=== PATIENT | female | born 1950 | race Caucasian/White ===

== ENCOUNTER 2021-01-28 15:52 | Emergency (ER) | payer BC, OTHER ==
[2021-01-28 16:11] VITALS: BP 128/80; PULSE 77; TEMP 97.9; BMI 26.6
== END 2021-01-28 19:25 | disposition home or self-care (01) ==
LOC: JER 15:52
DX: R07.9 Chest pain, unspecified (principal)
CPT/HCPCS: 71046-TC-FY; 93005; 93010; 99284-25